=== PATIENT | female | born 1990 | race Asian ===

== ENCOUNTER 2017-04-18 07:20 | Inpatient (IN) | payer SELFPAY ==
[~2017-04-18] VITALS: Ht 172 cm; Wt 90.7 kg
[2017-04-20 01:35] VITALS: BP 117/61
[2017-04-20] MEDS ORDERED: MISOPROSTOL 25 MCG TAB VG PRN (01:45)
[2017-04-20] MEDS ORDERED: NALBUPHINE HYDROCHLORIDE 10 MG/ML VIAL IVP PRN (01:45)
[2017-04-20] MEDS ORDERED: PROMETHAZINE 25 MG/ML VIAL IVP PRN (01:45)
[2017-04-20] MEDS ORDERED: OXYTOCIN 20 UNITS in LACTATED RINGERS 1,000 ML IV SCH (01:45)
[2017-04-20 02:14] LABS: BASOPHILS # (AUTO) 0.1 K/uL (0.00-0.22); BASOPHILS % (AUTO) 1.6 % (0.0-2.0); EOSINOPHILS # (AUTO) 0.1 K/uL (0-0.4); EOSINOPHILS % (AUTO) 1.2 % (0.0-4.0); LYMPHOCYTES # (AUTO) 1.6 K/uL (2.5-16.5); LYMPHOCYTES % (AUTO) 19.3 % (20.5-51.1); MEAN CORPUSCULAR HEMOGLOBIN 29 pg (27-31); MEAN CORPUSCULAR HGB CONC 34 g/dL (33-37); MEAN CORPUSCULAR VOLUME 85 fL (80-94); MONOCYTES # (AUTO) 0.7 K/uL (0.8-1.0); MONOCYTES % (AUTO) 7.8 % (1.7-9.3); NEUTROPHILS % (AUTO) 70.1 % (42.2-75.2); PLATELET COUNT (AUTO) 187 K/uL (140-450); RED BLOOD CELL COUNT(AUTO) 4.11 MIL/uL (4.20-5.40); WHITE BLOOD COUNT (AUTO) 8.5 K/uL (4.8-10.8)
[2017-04-20 02:15] LABS: APPEARANCE,URINE CLEAR (CLEAR); BILIRUBIN,URINE NEGATIVE (NEGATIVE); BLOOD, URINE 1+ (NEGATIVE); COLOR,URINE YELLOW (YELLOW); LEUKOCYTE ESTERASE ,URINE NEGATIVE (NEGATIVE); NITRITE, URINE NEGATIVE (NEGATIVE); UGLUCOSE NEGATIVE (NEGATIVE)
[2017-04-20] MEDS ORDERED: MISOPROSTOL 25 MCG TAB ONE (02:24)
[2017-04-20 02:44] LABS: RED CELL DISTRIBUTION WIDTH 22.3 % (11.6-13.7)
[2017-04-20] MEDS: LACTATED RINGERS 1,000 ML IV SCH ×2 (03:01→18:00)
[2017-04-20 03:22] LABS: RBC,URINE 3-10 (FEW) /HPF (0-5); WBC,URINE 0-5 (RARE) /HPF (0-5)
[2017-04-20] MEDS ORDERED: CALCIUM (03:57)
[2017-04-20] MEDS ORDERED: FERR-252 PO (03:57)
--- NOTE | 2017-04-20 08:57 | NUR ---
PATIENT HAS BEEN SCREENED AND CATEGORIZED LOW NUTRITION RISK. PATIENT WILL BE SEEN WITHIN 7 DAYS OF ADMISSION. 04/26/[address]
[2017-04-20] MEDS ORDERED: BUPIVACAINE 0.125%/NS PREMIX 250 ML ONE (14:52)
[2017-04-20] MEDS ORDERED: ceFAZolin 1,000 MG VIAL ONE (21:49)
[2017-04-20] MEDS ORDERED: MORPHINE PRES FREE 10 MG/10 ML AMP IV ONE (22:19)
[2017-04-20] MEDS ORDERED: MIDAZOLAM 2 MG/2 ML VIAL ONE (22:19)
[2017-04-20] MEDS ORDERED: OXYTOCIN 10 UNITS/ML VIAL ONE (22:23)
[2017-04-20] MEDS ORDERED: TRIAMCINOLONE 10 MG/ML 5ML VIAL ONE (22:23)
[2017-04-20] MEDS ORDERED: ceFAZolin 1,000 MG VIAL IVP ONE (22:50)
[2017-04-20] MEDS ORDERED: diphenhydrAMINE 50 MG/ML VIAL ONE (22:52)
[2017-04-20] MEDS ORDERED: OXYTOCIN 20 UNITS/LR PREMIX 1,000 ML IV ONE (22:52)
[2017-04-20] MEDS ORDERED: MEPERIDINE 50 MG/ML SYR ONE (23:03)
[2017-04-20] MEDS ORDERED: METHYLERGONOVINE 0.2 MG/ML AMP ONE (23:34)
[2017-04-20] MEDS ORDERED: CARBOPROST 250 MCG/ML AMP IM ONE (23:39)
[2017-04-20] MEDS ORDERED: MISOPROSTOL 100 MCG TAB ONE (23:39)
[2017-04-20] MEDS ORDERED: HYDROmorphone PFS 2 MG/ML SYR IVP PRN (23:45)
[2017-04-20] MEDS ORDERED: diphenhydrAMINE 50 MG/ML VIAL IVP PRN ×2 (23:45)
[2017-04-20] MEDS ORDERED: ONDANSETRON 4 MG/2 ML VIAL IVP PRN ×2 (23:45)
[2017-04-20] MEDS ORDERED: MEPERIDINE 25 MG/ML SYR IVP PRN (23:45)
[2017-04-20] MEDS ORDERED: NALBUPHINE 10 MG/ML AMP IVP PRN (23:45)
[2017-04-20] MEDS ORDERED: NALOXONE 0.4 MG/ML VIAL IVP PRN ×3 (23:45)
[2017-04-21] MEDS ORDERED: ONDANSETRON 4 MG/2 ML VIAL ONE (00:06)
[2017-04-21] MEDS ORDERED: MISOPROSTOL 100 MCG TAB VG ONE (00:25)
[2017-04-21] MEDS ORDERED: MISOPROSTOL 100 MCG TAB VG SCH (02:00)
[2017-04-21] MEDS: OXYTOCIN 20 UNITS in LACTATED RINGERS 1,000 ML IV SCH ×2 (07:12→15:07)
[2017-04-21] MEDS: KETOROLAC 30 MG/ML VIAL IM/IVP SCH ×2 (13:45→23:53)
[2017-04-21] MEDS ORDERED: SODIUM PHOSPHATE 118 ML ENEM RC PRN (18:00)
[2017-04-21 18:39] LABS: HEMATOCRIT 29.9 % (36-48); HEMOGLOBIN 10.1 g/dL (12.0-16.0); MEAN CORPUSCULAR HEMOGLOBIN 29 pg (27-31); MEAN CORPUSCULAR HGB CONC 34 g/dL (33-37); MEAN CORPUSCULAR VOLUME 85 fL (80-94); PLATELET COUNT (AUTO) 170 K/uL (140-450); RED BLOOD CELL COUNT(AUTO) 3.54 MIL/uL (4.20-5.40); RED CELL DISTRIBUTION WIDTH 22.3 % (11.6-13.7); WHITE BLOOD COUNT (AUTO) 18.6 K/uL (4.8-10.8)
[2017-04-21 19:24] LABS: LYMPHOCYTES % (MANUAL) 5 % (20-46); MONOCYTES % (MANUAL) 4 % (5-12)
[2017-04-22] MEDS ORDERED: HYDROcodone/APAP 5/325 MG 1 TAB TAB ONE ×3 (06:05→16:18)
[2017-04-22] MEDS: HYDROcodone/APAP 5/325 MG 1 TAB TAB PO PRN ×3 (06:07→16:22)
[2017-04-22] MEDS ORDERED: INFLUENZA VIRUS VACCINE QUAD 0.5 ML SYR IMVAC SCH (19:30)
[2017-04-23] MEDS ORDERED: INFLUENZA VIRUS VACCINE QUAD 0.5 ML SYR IMVAC SCH ×2 (00:10)
[2017-04-23] MEDS ORDERED: INFLUENZA VIRUS VACCINE QUAD 0.5 ML SYR IMVAC ONE (00:17)
[2017-04-23] MEDS ORDERED: HYDROcodone/APAP 5/325 MG 1 TAB TAB ONE ×2 (05:01→13:42)
[2017-04-23] MEDS: HYDROcodone/APAP 5/325 MG 1 TAB TAB PO PRN ×2 (05:05→13:43)
[2017-04-23 14:35] LABS: RAPID PLASMA REAGIN NON-REACTIVE (Non Reactiv)
== END 2017-04-23 14:30 | disposition home or self-care (01) | DRG 766 ==
LOC: MLD 04-20 01:20 → MFCC 04-21 00:21
PROVIDERS: ADMIT Obstetrics & Gynecology; ATTEND Obstetrics & Gynecology
PROC: 3E0P7VZ Introduction of Hormone into Female Reproductive, Via Natural or Artificial Opening (ICD-10-PCS; 2017-04-20)
PROC: 10D00Z1 Extraction of Products of Conception, Low, Open Approach (ICD-10-PCS; principal; 2017-04-20 22:15)
PROC: 3E0234Z Introduction of Serum, Toxoid and Vaccine into Muscle, Percutaneous Approach (ICD-10-PCS; 2017-04-23)
PROC: 3E0234Z Introduction of Serum, Toxoid and Vaccine into Muscle, Percutaneous Approach (ICD-10-PCS; 2017-04-23)
DX: O76 Abnormality in fetal heart rate and rhythm complicating labor and delivery (principal); O36.60X0 Maternal care for excessive fetal growth, unspecified trimester, not applicable or unspecified; O62.2 Other uterine inertia; Z37.0 Single live birth; Z3A.40 40 weeks gestation of pregnancy; Z23 Encounter for immunization; Z82.49 Family history of ischemic heart disease and other diseases of the circulatory system
CPT/HCPCS: 36415; 59200; 81001; 85025; 86592; 86886; 86900; 86901; 87086; 90658; 90715; J0690; J1200; J1885; J2175; J2210; J2250; J2270; J2405; J2590; J3301; J3490; J7030; J7120